=== PATIENT | female | born 1995 | race Caucasian/White ===

== ENCOUNTER 2016-07-08 08:51 | Emergency (ER) | payer BC ==
[2016-07-08 09:03] VITALS: BP 134/84
--- NOTE | 2016-07-08 13:49 | UC ---
IMarvin,Vikram, scribed for Anna Kulkarni MD on 07/08/16 at 0928 . Abdominal Pain Female HPI - HPI Summary HPI Summary: This 20 y/o female presents to [facility] for acute sharp LLQ abd pain since yesterday morning. Pt reports n/v x2 around 1300 PM. She also reports difficulty tolerating PO intake. Ambulation, standing upright, and movement make it worse. No dysuria. PMHx includes ovarian cyst, UVJ obstruction, and UTI with abx treatment. Primary care involves Viridiana Cardona NP. She wasn't able to get a hold of her primary this morning, and decided to come to Urgent Care today for evaluation. 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 She expresses concern if she will be able to work. - History of Current Complaint Chief Complaint: UCAbdominalPain Stated Complaint: ABDOMINAL PAIN Time Seen by Provider: 07/08/16 09:19 Hx Obtained From: Patient, Medical Records Hx Last Menstrual Period: 06/30/16 ?: No Onset/Duration: Sudden Onset, Still Present Timing: Constant Severity Initially: Moderate Severity Currently: Moderate Pain Intensity: 0 - when sitting Pain Scale Used: 0-10 Numeric Location: Discrete At: LLQ Radiates: No Character: Sharp Aggravating Factor(s): Movement, Other: - Ambulation, sneezing, and upright position Alleviating Factor(s): Nothing Associated Signs and Symptoms: Positive: Nausea, Vomiting. Negative: Urinary Symptoms - Risk Factors Ectopic Risk Factor: Negative Ovarian Torsion Risk Factor: Negative Allergies/Adverse Reactions: Allergies Allergy/AdvReac Type Severity Reaction Status Date / Time No Known Allergies Allergy Verified 10/08/15 16:07 Home Medications: Home Medications NK [No Home Medications Reported] 07/08/16 [History Confirmed 07/08/16] PMH/Surg Hx/FS Hx/Imm Hx GI/ History Of: Reports: Renal Disease - UTI and UVJ obstruction with hydronephrosis - Surgical History Surgical History: Yes Surgery Procedure, Year, and Place: Tonsillectomy. Adenoidectomy. Pins bilat Hips Slipped Epiphysis. Appendectomy. [place] Teeth - Family History Known Family History: Positive: Other - unspecified "genetic disorder" to sister - Social History Occupation: Employed Full-time Alcohol Use: None Substance Use Type: None Smoking Status (MU): Never Smoked Tobacco Review of Systems Constitutional: Negative Skin: Negative Eyes: Negative ENT: Negative Respiratory: Negative Cardiovascular: Negative Gastrointestinal: Abdominal Pain - LLQ, Vomiting Genitourinary: Negative Motor: Negative Neurovascular: Negative Musculoskeletal: Negative Neurological: Negative Psychological: Negative All Other Systems Reviewed And Are Negative: Yes Physical Exam Triage Information Reviewed: Yes Appearance: Well-Appearing, No Pain Distress, Well-Nourished, Other: - diaphoresis Vital Signs: Initial Vital Signs Temp 97.9 F 07/08/16 08:57 Pulse 107 07/08/16 08:57 Resp 18 07/08/16 08:57 BP 134/84 07/08/16 08:57 Pulse Ox 100 07/08/16 08:57 Vital Signs Reviewed: Yes Eyes: Positive: Conjunctiva Clear ENT: Positive: Normal ENT inspection Neck: Positive: Supple Respiratory: Positive: Lungs clear, Normal breath sounds, No respiratory distress Cardiovascular: Positive: RRR, No Murmur, Pulses Normal, Brisk Capillary Refill Abdomen Description: Positive: Soft, Guarding - LUQ. Negative: CVA Tenderness ( R), CVA Tenderness (L), Distended, Hernia @, McBurney's Point Tenderness, Peritoneal Signs Bowel Sounds: Positive: Present Musculoskeletal: Positive: Strength Intact, ROM Intact Neurological Exam: Normal Psychological Exam: Normal Skin Exam: Normal Diagnostics - Laboratory Diagnostic Studies Completed/Ordered: Urine assessment is negative Re-Evaluation - Re-Evaluation First Eval Re-Evaluation Time: 09:41 Change: Unchanged Comment: Plan of care involving transfer to [facility] is discussed with pt. Urine assessment is shared with pt. She is agreeable to transfer, but states that she will go to ED via private transport AMA. Abd Pain Female Course/Dx - Course Course Of Treatment: UA neg for wbcs or rbcs - Differential Dx/Diagnosis Differential Diagnosis: Renal Colic, Urinary Tract Infection, Other - hydronephrosis Provider Diagnoses: Acute Abdominal pain - Physician Notification/Consults Discussed Patient Care With: Renny Gross (PA at [facility]) at 0947 AM Time Discussed With Above Provider: 09:47 Discharge - Discharge Plan Condition: Stable Disposition: TRANS HIGHER LVL OF CARE FAC Referrals: No Primary Care Phys,NOPCP [Primary Care Provider] - The documentation as recorded by the scribe, Oh,Soohyun accurately reflects the service I personally performed and the decisions made by me, Anna Kulkarni MD.
== END 2016-07-08 10:06 | disposition short-term general hospital (02) ==
LOC: UCEAST 08:51
DX: R10.32 Left lower quadrant pain (principal)
CPT/HCPCS: 81002; 81025

== ENCOUNTER 2016-07-08 10:11 | Emergency (ER) | payer BC ==
[2016-07-08 10:56] VITALS: BP 137/69
== END 2016-07-08 12:31 | disposition left against medical advice (07) ==
LOC: ED 10:11
DX: R10.9 Unspecified abdominal pain (principal); Z53.21 Procedure and treatment not carried out due to patient leaving prior to being seen by health care provider

== ENCOUNTER 2017-10-16 13:15 | Emergency (ER) | payer BC ==
[2017-10-16 14:20] VITALS: BP 130/92
[2017-10-16] MEDS ORDERED: predniSONE TAB* 20 MG PO ONE (14:46)
--- NOTE | 2017-10-16 14:59 | UC ---
Skin Complaint HPI - HPI Summary HPI Summary: raised itchy red vesicular rash that is spreading using calamine and benadryl. began after exposure to Benadryl - History of Current Complaint Chief Complaint: UCRash Time Seen by Provider: 10/16/17 14:35 Stated Complaint: RASH Hx Obtained From: Patient Hx Last Menstrual Period: 10/14/17 ?: No Onset/Duration: Sudden Onset, Lasting Days Timing: Constant Onset Severity: Moderate Current Severity: Moderate Location: Diffuse Character: Pain, Redness, Raised Aggravating Factor(s): Nothing Alleviating Factor(s): Other - calamine and benadryl with out much relief Associated Signs & Symptoms: Positive: Rash Related History: Possible Reaction to: Environmental Exposure - Allergy/Home Medications Allergies/Adverse Reactions: Allergies Allergy/AdvReac Type Severity Reaction Status Date / Time No Known Allergies Allergy Verified 10/16/17 14:17 Home Medications: Home Medications diPHENhydraMINE PO* [Benadryl PO 25 MG TAB*] 25 mg PO Q6H PRN 10/16/17 [History Confirmed 10/16/17] Review of Systems Constitutional: Negative Skin: Rash Eyes: Negative ENT: Negative Respiratory: Negative Cardiovascular: Negative Gastrointestinal: Negative Genitourinary: Negative Motor: Negative Neurovascular: Negative Musculoskeletal: Negative Neurological: Negative Psychological: Negative Is Patient Immunocompromised?: No All Other Systems Reviewed And Are Negative: Yes PMH/Surg Hx/FS Hx/Imm Hx Previously Healthy: Yes - Surgical History Surgical History: Yes Surgery Procedure, Year, and Place: Tonsillectomy. Adenoidectomy. Pins bilat Hips Slipped Epiphysis. Appendectomy. [place] Teeth - Family History Known Family History: Positive: None - Social History Occupation: Employed Full-time Lives: With Family Alcohol Use: None Substance Use Type: None Smoking Status (MU): Never Smoked Tobacco Physical Exam Triage Information Reviewed: Yes Appearance: Well-Appearing, No Pain Distress, Well-Nourished Vital Signs: Initial Vital Signs Temp 98.2 F 10/16/17 14:18 Pulse 97 10/16/17 14:18 Resp 14 10/16/17 14:18 BP 130/92 10/16/17 14:18 Pulse Ox 100 10/16/17 14:18 Vital Signs Reviewed: Yes Eye Exam: Normal Eyes: Positive: Conjunctiva Clear ENT Exam: Normal ENT: Positive: Normal ENT inspection, Hearing grossly normal. Negative: Trismus , Muffled voice, Hoarse voice Dental Exam: Normal Neck exam: Normal Neck: Positive: Supple, Nontender Respiratory Exam: Normal Respiratory: Positive: Chest non-tender, No respiratory distress, No accessory muscle use Cardiovascular Exam: Normal Cardiovascular: Positive: RRR, Pulses Normal, Brisk Capillary Refill Musculoskeletal Exam: Normal Musculoskeletal: Positive: Strength Intact, ROM Intact, No Edema Neurological Exam: Normal Neurological: Positive: Alert, Muscle Tone Normal Psychological Exam: Normal Skin Exam: Other Skin: Positive: rashes - raised red vesicles speading Course/Dx - Course Course Of Treatment: cool compress, pepcid, benadryl, prednisone, calamine prn comfort follow with pcp prn - Diagnoses Provider Diagnoses: Poision Mar rash Discharge - Sign-Out/Discharge Documenting (check all that apply): Discharge/Admit/Transfer - Discharge Plan Condition: Stable Disposition: HOME Prescriptions: Famotidine TAB 40 MG(NF) [Pepcid TAB 40 MG(NF)] 40 mg PO DAILY #14 tab predniSONE TAB* [Deltasone TAB*] 20 mg PO DAILY #18 tab Patient Education Materials: Diphenhydramine (By mouth), Poison Mar (ED), Cold Compress or Soak (ED) Referrals: Viridiana Tierney [Primary Care Provider] - If Needed - Billing Disposition and Condition Condition: STABLE Disposition: HOME
== END 2017-10-16 15:00 | disposition home or self-care (01) ==
LOC: UCEAST 13:15
DX: L23.7 Allergic contact dermatitis due to plants, except food (principal)
CPT/HCPCS: 99212; G0463; J7512

== ENCOUNTER 2018-11-05 11:34 | Emergency (ER) | payer BC, OTHER ==
--- NOTE | 2018-11-05 12:12 | UC ---
Laceration HPI - HPI Summary HPI Summary: 23 yo female presents with right index finger laceration. 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 She bandaged the area and came to . She is unsure the date of her last tetanus. She is right handed. - History Of Current Complaint Stated Complaint: FINGER LACERATION Time Seen by Provider: 11/05/18 12:12 Hx Obtained From: Patient Hx Last Menstrual Period: 10/14/17 Laceration Location: Finger Mechanism Of Injury: Sharp Trauma Onset/Duration: Sudden Onset Severity: Moderate Pain Intensity: 5 Pain Scale Used: 0-10 Numeric - Allergies/Home Medications Allergies/Adverse Reactions: Allergies Allergy/AdvReac Type Severity Reaction Status Date / Time No Known Allergies Allergy Verified 11/05/18 13:51 Home Medications: Home Medications Acetaminophen [Acetaminophen Extra Strength] 500 mg PO ONCE 11/05/18 [History Confirmed 11/05/18] Ibuprofen ADULT LIQ* [Motrin LIQ ADULT*] 600 mg PO DAILY 11/05/18 [History Confirmed 11/05/18] PMH/Surg Hx/FS Hx/Imm Hx - Additional Past Medical History Additional PMH: None - Surgical History Surgical History: Yes Surgery Procedure, Year, and Place: Tonsillectomy. Adenoidectomy. Pins bilat Hips Slipped Epiphysis. Appendectomy. [place] Teeth - Family History Known Family History: Positive: None - Social History Occupation: Employed Full-time Lives: With Family Alcohol Use: None Substance Use Type: None Smoking Status (MU): Never Smoked Tobacco Review of Systems All Other Systems Reviewed And Are Negative: Yes Constitutional: Positive: Negative Skin: Positive: Other - Right index finger laceration Respiratory: Positive: Negative Cardiovascular: Positive: Negative Neurological: Positive: Negative Psychological: Positive: Negative Physical Exam - Summary Physical Exam Summary: GENERAL: NAD. WDWN. No pain distress. SKIN: RIGHT INDEX FINGER: Dorsal aspect with three lacerations: 1 - 1.0cm diagonal laceration just through the dermis just distal to the PIP. No tendon involvement. Well approximated at rest and during flexion 2 - 1.0cm diagonal laceration just through the dermis overlying the DIP. No tendon involvement. Well approximated at rest and during flexion 3 - 1.0cm linear laceration through the horizontal middle of the nail to radial aspect of distal phalanx with 4mm width on skin and subcutaneous tissue exposed. CHEST: No accessory muscle use. Breathing comfortably and in no distress. CV: Pulses intact. Cap refill <2seconds MSK: FROM at right index finger DIP and PIP. Flexing at DIP worsens pain. TTP at distal phalanx. NEURO: Alert. PSYCH: Age appropriate behavior. Triage Information Reviewed: Yes Vital Signs: Vital Signs: Temp Pulse Resp BP Pulse Ox 98.3 F 80 18 140/86 99 11/05/18 13:52 11/05/18 13:52 11/05/18 13:52 11/05/18 13:52 11/05/18 13:52 Vital Signs Reviewed: Yes Laceration Course/Dx - Course/Dx Course Of Treatment: XR: IMPRESSION: #. Compound comminuted fracture diaphysis and tuft of the distal phalanx. Overlying bandage limits assessment including for retained foreign bodies. The procedure was explained to the pt and all questions were answered. A time out was performed, witnessed, and signed. The area was irrigated with 500mL sterile saline. 1mL 2% lidocaine without epi was administered as a digital block to the right index finger base, and good anesthetization was achieved. In the usual sterile fashion a 6-0 prolene suture was attempted to be placed three separate times at the most distal laceration, but lac required too much tension to provide any meaningful closure and suture tore through the skin each time. I called Orthopedics and spoke to Dr. Morgan regarding pt and most appropriate closure/bandage method - she recommended xeroform and tubgauze and f/u in their office within 3-4 days. Discussed this with pt. Wound bandaged with xeroform and tubgauze. Will place her on keflex for open fracture. tdap updated today. - Diagnosis Provider Diagnosis: Open fracture of phalanx of right index finger Discharge - Sign-Out/Discharge Documenting (check all that apply): Patient Departure All imaging exams completed and their final reports reviewed: Yes - Discharge Plan Condition: Stable Disposition: HOME Prescriptions: Cephalexin CAP* [Keflex CAP*] 500 mg PO TID #21 cap Patient Education Materials: Laceration (DC), Finger Fracture (ED) Referrals: Viridiana Tierney [Primary Care Provider] - Iesha Morgan MD [Medical Doctor] - As Soon As Possible Additional Instructions: If you develop a fever, shortness of breath, chest pain, new or worsening symptoms - please call your PCP or go to the ED immediately. Keep the dressing clean, dry, and intact until you are able to see Orthopedics. Please call Orthopedics at the number below to schedule an appointment within 3- 5 days for a recheck. Take your antibiotic as prescribed. - Billing Disposition and Condition Condition: STABLE Disposition: Home
[2018-11-05] MEDS ORDERED: Tetan/Diph/Pertus SYR(Tdap)* 0.5 ML SYR(BOOSTRIX) use SYR IM ONE (12:24)
[2018-11-05] MEDS ORDERED: Lidocaine 2% PF * 5 ML VIAL INJ ONE (12:24)
[2018-11-05 13:58] VITALS: BP 140/86
== END 2018-11-05 14:20 | disposition home or self-care (01) ==
LOC: UCEAST 11:34
DX: S61.210A Laceration without foreign body of right index finger without damage to nail, initial encounter (principal); S62.630B Displaced fracture of distal phalanx of right index finger, initial encounter for open fracture; X58.XXXA Exposure to other specified factors, initial encounter; Y92.9 Unspecified place or not applicable
CPT/HCPCS: 73140; 90715; 99212; G0463